=== PATIENT | male | born 1960 | race Caucasian/White ===

== ENCOUNTER → 2022-01-03 | Outpatient (CLI) | payer OTHER ==
--- NOTE | 2022-01-03 14:47 | MR ---
EXAMINATION TYPE: MR lumbar spine wo con DATE OF EXAM: 01/03/2022 COMPARISON: NONE HISTORY: SPONDYLOSIS, RADICULOPATHY LUMBAR REGION, PAIN TECHNIQUE: Multiplanar, multisequence imaging of the lumbar spine is performed without IV contrast. FINDINGS: Sagittal images of the lumbar spine show vertebral body heights and alignment to appear sat isfactory. Multilevel disc desiccation is seen. Moderate disc space narrowing L4-L5 level greatest l eft aspect represents heterogeneous Modic type II endplate changes. The conus medullaris is normal in position and signal ending inferior L1 level. Axial images at T12-L1 levels show mild broad disc bulge mildly effacing the anterior thecal sac. Axial images at L1-L2 levels show bridging posterior osteophyte significantly effacing the anterolate ral thecal sac seen best on sagittal image 8 series 301. Patent bilateral neural foramina. Axial images at L2-L3 level show mild broad disc bulge with right lateral disc protrusion component m ildly effacing the anterior thecal sac. Mild facet arthropathy and ligamentum flavum hypertrophy bila terally. Mild right-sided anterior inferior neural foraminal narrowing. Axial images at the L3-L4 level show moderate broad disc bulge effacing the anterior thecal sac. Ther e is mild facet arthropathy bilaterally. There is mild bilateral neural foraminal narrowing. Axial images at L4-L5 level show moderate broad disc bulge effacing anterior thecal sac. There is mod erate facet arthropathy and ligamentum flavum hypertrophy. There is moderate 2 severe left-sided infe rior neural foraminal narrowing. Probable encroachment on left L4 nerve is felt present sagittal imag e 4. Axial images at L5-S1 level mild facet arthropathy bilaterally. There is tiny central disc protrusion . Spinal canal is preserved. Bilateral neural foramina are patent. Paraspinal muscle bulk is maintained. IMPRESSION: Multilevel degenerative changes in the lumbar spine as detailed above. Most significant f indings L1-L2 level and L4-L5 levels.
== END | disposition home or self-care (01) ==
LOC: RADMRIMAIN 13:10
PROVIDERS: ATTEND Physical Medicine & Rehabilitation
DX: M51.16 Intervertebral disc disorders with radiculopathy, lumbar region (principal); M47.27 Other spondylosis with radiculopathy, lumbosacral region; M16.0 Bilateral primary osteoarthritis of hip; M41.26 Other idiopathic scoliosis, lumbar region
CPT/HCPCS: 72148